=== PATIENT | female | born 1970 | race Hispanic/Latino ===

== ENCOUNTER 2020-01-26 09:37 | Outpatient (CLI) | payer BC, OTHER, SELFPAY ==
[2020-01-26 09:57] LABS: Hematocrit 42.8 % (37.0-47.0); Hemoglobin 14.3 g/dL (12.0-15.0); Mean Corpuscular HGB Conc 33.4 g/dl (32-36); Mean Corpuscular Volume 92.6 fl (80-100); Mean Platelet Volume 9.9 fl (7.4-10.4); Platelet Count Result 330 k/mm3 (150-375); Red Blood Count 4.62 M/mm3 (4.2-5.4); Red Cell Distribution Width 12.5 % (11.5-14.5); White Blood Count 20.6 K/mm3 (4.5-10.0)
[2020-01-26 10:14] LABS: Alanine Aminotransferase 11 U/L (4-35); Albumin Level 4.4 g/dL (3.5-5.1); Alkaline Phosphatase 41 U/L (38-126); Anion Gap 8 mmol/L (8-16); Aspartate Amino Transferase 16 U/L (14-36); Bilirubin,Total 0.5 mg/dL (0.2-1.3); Blood Urea Nitrogen 13 mg/dL (7-17); Calcium 9.3 mg/dL (8.4-10.2); Carbon Dioxide 26 mmol/L (22-30); Chloride 104 mmol/L (98-107); Estimated Glomerular Filt Rate > 60; Glucose 110 mg/dL (65-105); Potassium 3.6 mmol/L (3.4-5.0); Sodium 138 mmol/L (137-145)
[2020-01-26 10:43] LABS: Free T4 Free Thyroxine 0.71 ng/mL (0.78-2.19)
== END 2020-01-26 09:38 | disposition home or self-care (01) ==
PROVIDERS: PCP Family Medicine; Visit Provider Physician Assistant
DX: R53.83 Other fatigue (principal)
CPT/HCPCS: 36415; 80053; 84439; 84443; 85027

== ENCOUNTER 2020-01-30 14:31 | Emergency (ER) | payer BC, OTHER, SELFPAY ==
--- NOTE | ~2020-01-30 | XR_ITS ---
EXAMINATION: XR chest 2V 01/30/2020 15:05 INDICATION: Chest pain PROCEDURE: 2 view chest COMPARISON: Comparison to multiple prior studies sequentially, with oldest reviewed study dated 10/24. FINDINGS: The lungs are clear. The cardiomediastinal silhouette is within normal limits. There are no pleural effusions. There is no pneumothorax suspected. IMPRESSION: 1: NO ACUTE CARDIOPULMONARY DISEASE. Reviewed, dictated and finalized at location B.
--- NOTE | 2020-01-30 14:37 | ECG_ITS ---
Measurements Intervals [place] Rate: 80 P: 54 CA: 174 QRS: 4 QRSD: 78 T: 29 QT: 384 QTc: 443 Interpretive Statements SINUS RHYTHM BASELINE WANDER- V1-V6 NORMAL ECG Electronically Signed On 01-30-2020 14:50:41 CDT by Jonathan Lentz D.O.
[2020-01-30 14:44] VITALS: BP 139/87; PULSE 74; RESP 20; TEMP 36.8; O2SAT 98
[2020-01-30 14:54] VITALS: BP 139/87; PULSE 77; RESP 20; O2SAT 99
--- NOTE | 2020-01-30 15:06 | ED.CHESTPAIN ---
HPI - Chest Pain General Chief Complaint: Chest Pain Stated Complaint: INT CHEST PAIN XWKS Time Seen by Provider: 01/30/20 14:39 Source: patient Mode of arrival: ambulatory Limitations: no limitations History of Present Illness HPI narrative: 49 years old white female presents with intermittent left chest pressure type ache for the last 2 weeks. Patient reports when the pain comes last for few hours. Then resolves. Patient denies any aggravating or relieving factors. Patient reports that the pain radiates to the left upper back. Patient reports sometimes the pain is down if she calmed down. Patient denies any fever, chills, nausea, vomiting, shortness of breath. History of anxiety and depression. Reports a lot of stress lately. Patient reported having a fall, tripped and fell 3 weeks ago, landed on the right side of her body. Did not go to any hospital at that time. Denies any specific complaint. Related Data Allergies Allergy/AdvReac Type Severity Reaction Status Date / Time piperacillin Allergy Severe Dyspnea / Verified 01/30/20 14:49 SOB tazobactam Allergy Severe Dyspnea / Verified 01/30/20 14:49 SOB vancomycin Allergy Intermediate Dyspnea / Verified 01/30/20 14:49 SOB ciprofloxacin Allergy Mild Unknown Verified 01/30/20 14:49 codeine Allergy Mild Unknown Verified 01/30/20 14:49 Quinolones Allergy Mild Unknown Verified 01/30/20 14:49 Sulfa (Sulfonamide Allergy Mild unknown Verified 01/30/20 14:49 Antibiotics) Contrast Media Allergy Mild Rash Uncoded 01/30/20 14:49 Review of Systems Review of Systems: Narrative: CONSTITUTIONAL: Denies fever, chills, or sweats. EYES: Denies visual changes, redness, or discharge. ENT: Denies rhinorrhea, congestion, sore throat, or otalgia. CARDIOVASCULAR: Denies chest pain, palpitations, or edema. RESPIRATORY: Denies cough or dyspnea. GASTROINTESTINAL: Denies abdominal pain, nausea, vomiting, or diarrhea. GENITOURINARY: Denies dysuria or hematuria. SKIN: Denies rash or itching. MUSCULOSKELETAL: Denies back pain, joint pain, or myalgia. NEUROLOGIC: Denies headache, numbness, or weakness. PSYCHIATRIC: Denies anxiety or depression. [facility] Past Medical History Medical History Depression Surgical History Surgical History H/O tubal ligation History of cholecystectomy Social History Social History Smoking status: Former smoker Gender identity (if verbalized by the patient): Female Exam Narrative: Exam Narrative: General appearance: Well-developed, well-nourished Skin: Normal color Head: Normocephalic, nontraumatic Eyes: Clear conjunctiva ENT: Oropharynx normal, ears normal, nose normal Neck: Supple, nontender Chest and respiratory: Airway patent, no respiratory distress, no accessory muscle use, severe tenderness left upper chest, no bruises, no swelling or rash Heart: Regular rate/rhythm Abdomen: Soft, nontender, no organomegaly, quiet bowel sounds Vascular: Normal peripheral pulses, normal capillary refill. 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
[2020-01-30 15:08] LABS: Basophils Absolute Auto 0.1 K/mm3 (0.0-0.1); Basophils Percent Auto 0.4 % (0.2-1.2); Hematocrit 43.7 % (37.0-47.0); Hemoglobin 14.6 g/dL (12.0-15.0); Immature Granulocyte Absolute 0.13 K/mm3 (0.00-0.031); Lymphocytes Absolute Auto 1.06 K/mm3 (0.9-3.2); Lymphocytes Percent Auto 7.8 % (18.3-44.2); Mean Corpuscular HGB Conc 33.4 g/dl (32-36); Mean Corpuscular Hemoglobin 30.9 pg (26-34); Mean Corpuscular Volume 92.4 fl (80-100); Mean Platelet Volume 9.9 fl (7.4-10.4); Monocytes Absolute Auto 0.2 K/mm3 (0.1-0.6); Monocytes Percent Auto 1.6 % (2.6-8.5); Neutrophils Absolute Auto 12.1 K/mm3 (1.3-6.7); Neutrophils Percent Auto 89.2 % (45.5-73.1); Platelet Count Result 317 k/mm3 (150-375); Red Blood Count 4.73 M/mm3 (4.2-5.4); Red Cell Distribution Width 12.6 % (11.5-14.5); White Blood Count 13.5 K/mm3 (4.5-10.0)
[2020-01-30 15:17] LABS: Partial Thromboplastin Time 24.7 SECONDS (22.3-36.8); Prothrombin Time 12.5 Seconds (11.1-14.7)
[2020-01-30 15:19] LABS: Anion Gap 10 mmol/L (8-16); Blood Urea Nitrogen 17 mg/dL (7-17); Calcium 9.2 mg/dL (8.4-10.2); Carbon Dioxide 24 mmol/L (22-30); Chloride 103 mmol/L (98-107); Estimated CRCL calculation 94 ml/min; Estimated Glomerular Filt Rate > 60; Glucose 113 mg/dL (65-105); Potassium 4.5 mmol/L (3.4-5.0); Sodium 137 mmol/L (137-145)
[2020-01-30 15:30] LABS: Troponin I < 0.012 ng/mL (0.000-0.034)
[2020-01-30 15:35] VITALS: BP 142/80; PULSE 88; RESP 17; O2SAT 98
[2020-01-30 15:44] LABS: D Dimer 0.49 ug/mL (<0.48)
== END 2020-01-30 17:14 | disposition home or self-care (01) ==
PROVIDERS: Emergency Medicine; Emergency Provider Emergency Medicine; PCP Family Medicine
DX: R07.89 Other chest pain (principal); F41.9 Anxiety disorder, unspecified; F32.9 Major depressive disorder, single episode, unspecified; Z87.891 Personal history of nicotine dependence
CPT/HCPCS: 36415; 71046; 80048; 84484; 85025; 85380; 85610; 85730; 93005; 99284

== ENCOUNTER 2020-04-03 10:32 | Outpatient (CLI) | payer BC, OTHER, SELFPAY ==
[2020-04-03 10:58] LABS: Hematocrit 43.9 % (37.0-47.0); Hemoglobin 14.4 g/dL (12.0-15.0); Mean Corpuscular HGB Conc 32.8 g/dl (32-36); Mean Corpuscular Hemoglobin 30.5 pg (26-34); Mean Platelet Volume 10.1 fl (7.4-10.4); Platelet Count Result 336 k/mm3 (150-375); Red Blood Count 4.72 M/mm3 (4.2-5.4); White Blood Count 7.1 K/mm3 (4.5-10.0)
[2020-04-03 11:05] LABS: Add Urine Microscopic? YES; Appearance Urine Clear (Clear); Bacteria Urine Trace /hpf; Bilirubin Urine Negative (Negative); Blood Urine Negative (Negative); Color Urine Yellow (Yellow); Glucose Urine UA Negative (Negative); Ketones Urine Negative (Negative); Leukocyte Esterase Ur Negative LEU/UL (NEGATIVE); Mucus Urine Rare /lpf; Nitrate Urine Negative (Negative); Protein Urine Negative (Negative); Specific Grav Ur 1.017 (1.001-1.035); Squamous Epithelial Cell Urine Many /hpf (Few); Urobilinogen Urine Negative mg/dL (<2.0)
[2020-04-03 11:05] LABS: Alanine Aminotransferase 11 U/L (4-35); Albumin Level 4.3 g/dL (3.5-5.1); Alkaline Phosphatase 42 U/L (38-126); Anion Gap 5 mmol/L (8-16); Aspartate Amino Transferase 18 U/L (14-36); Bilirubin,Total 0.6 mg/dL (0.2-1.3); Blood Urea Nitrogen 9 mg/dL (7-17); Carbon Dioxide 31 mmol/L (22-30); Chloride 101 mmol/L (98-107); Estimated Glomerular Filt Rate > 60; Glucose 88 mg/dL (65-105); Potassium 4.4 mmol/L (3.4-5.0); Sodium 137 mmol/L (137-145)
[2020-04-03 11:35] LABS: Thyroid Stimulating Hormone 0.392 uIU/mL (0.465-4.680)
[2020-04-03 11:50] LABS: Free T4 Free Thyroxine 1.02 ng/mL (0.78-2.19)
== END 2020-04-03 10:33 | disposition home or self-care (01) ==
LOC: ANHLAB 10:32
PROVIDERS: PCP Family Medicine; Visit Provider Physician Assistant
DX: D64.9 Anemia, unspecified (principal); I10 Essential (primary) hypertension; E03.9 Hypothyroidism, unspecified; R35.0 Frequency of micturition
CPT/HCPCS: 36415; 80053; 81001; 84439; 84443; 85027; 87086; 87088

== ENCOUNTER 2020-06-12 11:54 | Outpatient (CLI) | payer BC, OTHER, SELFPAY ==
[2020-06-12 12:38] LABS: Creatinine Urine 75.3 mg/dL; Total Protein Urine Random 7 mg/dL; Ur Ttl Prot Creatinine Ratio 0.09 mg/mg (0-0.20)
[2020-06-12 12:41] LABS: Anion Gap 4 mmol/L (8-16); Blood Urea Nitrogen 9 mg/dL (7-17); Calcium 8.6 mg/dL (8.4-10.2); Carbon Dioxide 27 mmol/L (22-30); Chloride 105 mmol/L (98-107); Estimated Glomerular Filt Rate > 60; Glucose 87 mg/dL (65-105); Phosphorus 3.5 mg/dL (2.5-4.5); Potassium 4.5 mmol/L (3.4-5.0); Sodium 136 mmol/L (137-145)
[2020-06-12 12:54] LABS: Add Urine Microscopic? YES; Appearance Urine Clear (Clear); Bilirubin Urine Negative (Negative); Blood Urine Negative (Negative); Color Urine Yellow (Yellow); Glucose Urine UA Negative (Negative); Ketones Urine Negative (Negative); Leukocyte Esterase Ur Negative LEU/UL (Negative); Mucus Urine Rare /lpf; Nitrate Urine Negative (Negative); Protein Urine Negative (Negative); Specific Grav Ur 1.014 (1.001-1.035); Squamous Epithelial Cell Urine Many /hpf (Few); Urobilinogen Urine Negative mg/dL (<2.0)
== END 2020-06-12 11:55 | disposition home or self-care (01) ==
LOC: ANHLAB 11:55
PROVIDERS: PCP Family Medicine; Visit Provider Internal Medicine Nephrology
DX: N39.0 Urinary tract infection, site not specified (principal)
CPT/HCPCS: 36415; 80069; 81001; 82570; 84156

== ENCOUNTER 2020-06-19 09:48 | Outpatient (CLI) | payer BC, OTHER, SELFPAY ==
--- NOTE | ~2020-06-19 | CT_ITS ---
EXAMINATION: CT abdomen pelvis wo con EXAM DATE: 06/19/2020 10:57 INDICATION: Abdominal tenderness. TECHNIQUE: Spiral CT of the abdomen and pelvis was performed without contrast. Axial, coronal and s agittal images were reviewed. The dose-length product (DLP) for this examination was 845.06 mGy-cm. The exposure was tailored according to patient size (auto mA exposure control), and iterative recons truction (ASIR) was used as additional dose reduction technique. Comparison is made to prior examinat ion from 09/25/2014. FINDINGS: The liver, spleen, adrenal glands and pancreas are unremarkable. There are cholecystectomy clips. There is no nephrolithiasis or hydronephrosis. There is a right renal cyst measuring 1.0 cm. The uterus is retroverted and morphologically normal. The bladder is unremarkable. There is no r etroperitoneal or pelvic lymphadenopathy. The appendix is normal. There is mild sigmoid colonic diverticulosis. There is no adjacent inflammat ory change to suggest diverticulitis. The stomach and small bowel are unremarkable. There is expect ed amount of colonic stool. No free intraperitoneal gas. The heart is normal in size. There are no pericardial or pleural effusions. Right lower lobe calcified granuloma. Advanced lower lumbar facet arthropathy. There are no osteoblastic or osteolytic lesions identified. Bilateral iliac sclerosis, chronic sacroiliitis. IMPRESSION: 1. No acute intra-abdominal findings. 2. Mild sigmoid diverticulosis. 3. Chronic sacroiliitis. Reviewed, dictated and finalized at location B. OPEDIC SURGEON
== END 2020-06-19 09:49 | disposition home or self-care (01) ==
PROVIDERS: PCP Family Medicine; Visit Provider Internal Medicine Nephrology
DX: N39.0 Urinary tract infection, site not specified (principal); R10.819 Abdominal tenderness, unspecified site; K57.30 Diverticulosis of large intestine without perforation or abscess without bleeding; M46.1 Sacroiliitis, not elsewhere classified
CPT/HCPCS: 74176

== ENCOUNTER 2020-08-14 11:05 | Outpatient (CLI) | payer OTHER, SELFPAY ==
[2020-08-14 11:21] LABS: Hematocrit 39.4 % (37.0-47.0); Hemoglobin 12.8 g/dL (12.0-15.0); Mean Corpuscular HGB Conc 32.5 g/dl (32-36); Mean Corpuscular Hemoglobin 30.6 pg (26-34); Mean Corpuscular Volume 94.3 fl (80-100); Mean Platelet Volume 9.8 fl (7.4-10.4); Platelet Count Result 274 k/mm3 (150-375); Red Blood Count 4.18 M/mm3 (4.2-5.4); White Blood Count 7.6 K/mm3 (4.5-10.0)
[2020-08-14 11:32] LABS: Alanine Aminotransferase 14 U/L (4-35); Albumin Level 3.9 g/dL (3.5-5.1); Alkaline Phosphatase 43 U/L (38-126); Anion Gap 5 mmol/L (8-16); Aspartate Amino Transferase 23 U/L (14-36); Bilirubin,Total 0.2 mg/dL (0.2-1.3); Blood Urea Nitrogen 6 mg/dL (7-17); Calcium 8.7 mg/dL (8.4-10.2); Carbon Dioxide 29 mmol/L (22-30); Chloride 103 mmol/L (98-107); Estimated Glomerular Filt Rate > 60; Glucose 81 mg/dL (65-105); Sodium 137 mmol/L (137-145)
[2020-08-14 12:16] LABS: Vitamin D 25 Hydroxy 30.2 ng/mL
== END 2020-08-14 11:06 | disposition home or self-care (01) ==
LOC: ANHLAB 11:07
PROVIDERS: PCP Family Medicine; Visit Provider Family Medicine
DX: E03.9 Hypothyroidism, unspecified (principal); R53.83 Other fatigue; I10 Essential (primary) hypertension; E55.9 Vitamin D deficiency, unspecified
CPT/HCPCS: 36415; 80053; 82306; 84443; 85027

== ENCOUNTER 2020-10-10 19:20 | Emergency (ER) | payer OTHER, SELFPAY ==
[2020-10-10 19:31] VITALS: BP 129/78; PULSE 78; RESP 20; TEMP 36.3; O2SAT 100
--- NOTE | 2020-10-10 19:31 | PC.NURSE ---
in br to obtain ua.
--- NOTE | 2020-10-10 19:54 | ED.FEMALEGU ---
HPI - Female Genitourinary General Chief complaint: Urogenital-Female Stated complaint: UTI Time Seen by Provider: 10/10/20 19:42 Source: patient and RN notes reviewed Mode of arrival: ambulatory Limitations: no limitations History of Present Illness HPI Narrative: Patient presents today with a 2-week history of lower abdominal pain, low back pain, frequency, dysuria with hematuria that started this morning. Denies fever, nausea, vomiting. She was taking Azo that was providing relief initially, but is no longer. MD elicited complaint: dysuria Related Data Home Medications Medication Instructions Recorded Confirmed atomoxetine PO 10/10/20 buspirone mg 10/10/20 escitalopram oxalate mg 10/10/20 levothyroxine 10/10/20 lisinopril 10/10/20 montelukast mg 10/10/20 omeprazole 10/10/20 phenazopyridine 10/10/20 Allergies Allergy/AdvReac Type Severity Reaction Status Date / Time ciprofloxacin Allergy Unknown Verified 07/19/14 10:27 clindamycin Allergy Unknown Verified 07/19/14 10:37 codeine Allergy Unknown Verified 07/19/14 10:27 piperacillin Allergy Unknown Verified 09/17/15 12:09 Sulfa (Sulfonamide Allergy Unknown Verified 07/19/14 10:27 Antibiotics) tazobactam Allergy Unknown Verified 09/17/15 12:09 vancomycin Allergy Unknown Verified 09/17/15 12:09 Review of Systems Review of Systems: Narrative: CONSTITUTIONAL: Denies body aches, fever, chills, or sweats. EYES: Denies visual changes, redness, or discharge. ENT: Denies rhinorrhea, congestion, sore throat, or otalgia. CARDIOVASCULAR: Denies chest pain, palpitations, or edema. RESPIRATORY: Denies cough or dyspnea. GASTROINTESTINAL: Denies nausea, vomiting, or diarrhea. + Lower abdominal pain GENITOURINARY: + Dysuria, frequency, hematuria. SKIN: Denies rash, itching, or wounds. MUSCULOSKELETAL: Denies back pain, joint pain, or myalgia. NEUROLOGIC: Denies headache, numbness, tingling, or weakness. PSYCH: Denies depression or anxiety. [facility] Social History Social History Smoking status: Former smoker Second hand tobacco smoke exposure: Yes Smoking end date: 04/11/11 Alcohol intake: never Comments At time of signature, I have reviewed and agree with nursing past medical, surgical, social and family history unless otherwise noted. Please see nursing chart for further information. There is no relevant family history pertinent to the presenting complaint Exam Narrative: Exam Narrative: GENERAL: Well-appearing, well-nourished, and in no acute distress. HEAD: Normocephalic, atraumatic. EYES: EOMI. No redness or drainage. Conjunctivae normal. ENT: Mucous membranes pink and moist. NECK: Normal AROM. CHEST: No respiratory distress. Clear to auscultation. HEART: Regular rate and rhythm. No murmur appreciated. Normal peripheral pulses. ABDOMEN: Soft, , nondistended, normal active bowel sounds.+ Suprapubic tenderness.-CVAT MUSCULOSKELETAL: No bony tenderness. Bilateral lower lumbar paraspinal muscle tenderness. EXTREMITIES: Normal range of motion. No edema. SKIN: Warm, dry, no rash. Capillary refill normal. Normal skin turgor. NEURO: No focal deficits. Alert and oriented x3. Gait steady. PSYCH: Normal affect. No signs of depression or anxiety. Course Vital Signs Vital signs: Vital Signs Temperature 97.3 F L 10/10/20 19:31 Pulse Rate 78 10/10/20 19:31 Respiratory Rate 20 10/10/20 19:31 Blood Pressure 129/78 10/10/20 19:31 Pulse Oximetry 100 10/10/20 19:31 Temperature 97.3 F L 10/10/20 19:31 Pulse Rate 78 10/10/20 19:31 Respiratory Rate 20 10/10/20 19:31 Blood Pressure 129/78 10/10/20 19:31 Pulse Oximetry 100 10/10/20 19:31 Reviewed. Pt has been instructed to follow up with her PCP regarding her elevated blood pressure today. MDM - Female Genitourinary Differential Diagnosis Differential diagnosis: Likely urinary tract infection, cyst
== END 2020-10-10 20:04 | disposition home or self-care (01) ==
PROVIDERS: Emergency Provider Nurse Practitioner; PCP Family Medicine
DX: N30.01 Acute cystitis with hematuria (principal); Z87.891 Personal history of nicotine dependence; I10 Essential (primary) hypertension; K21.9 Gastro-esophageal reflux disease without esophagitis; E03.9 Hypothyroidism, unspecified
CPT/HCPCS: 81003; 87077; 87086; 87088; 99203; G0463

== ENCOUNTER 2021-02-13 13:08 | Outpatient (CLI) | payer OTHER, SELFPAY ==
[2021-02-13 13:35] LABS: Hemoglobin 14.4 g/dL (12.0-15.0); Mean Corpuscular HGB Conc 32.7 g/dl (32-36); Mean Corpuscular Hemoglobin 31.2 pg (26-34); Mean Corpuscular Volume 95.2 fl (80-100); Mean Platelet Volume 9.7 fl (7.4-10.4); Platelet Count Result 320 k/mm3 (150-375); Red Blood Count 4.62 M/mm3 (4.2-5.4); Red Cell Distribution Width 12.3 % (11.5-14.5); White Blood Count 10.8 K/mm3 (4.5-10.0)
[2021-02-13 13:48] LABS: Alanine Aminotransferase 15 U/L (4-35); Albumin Level 4.7 g/dL (3.5-5.1); Alkaline Phosphatase 48 U/L (38-126); Anion Gap 11 mmol/L (8-16); Aspartate Amino Transferase 23 U/L (14-36); Bilirubin,Total 0.5 mg/dL (0.2-1.3); Blood Urea Nitrogen 10 mg/dL (7-17); Calcium 9.1 mg/dL (8.4-10.2); Carbon Dioxide 25 mmol/L (22-30); Chloride 102 mmol/L (98-107); Estimated Glomerular Filt Rate > 60; Glucose 88 mg/dL (65-110); Potassium 3.8 mmol/L (3.4-5.0); Sodium 138 mmol/L (137-145)
== END 2021-02-13 13:09 | disposition home or self-care (01) ==
LOC: ANHLAB 13:09
PROVIDERS: PCP Family Medicine; Visit Provider Family Medicine
DX: E03.9 Hypothyroidism, unspecified (principal); R53.83 Other fatigue; I10 Essential (primary) hypertension
CPT/HCPCS: 36415; 80053; 84443; 85027

== ENCOUNTER 2021-04-30 18:45 | Emergency (ER) | payer OTHER, SELFPAY ==
[2021-04-30 18:50] VITALS: BP 146/87; PULSE 80; RESP 16; TEMP 36.1; O2SAT 100
--- NOTE | 2021-04-30 19:47 | ED.URI ---
HPI - URI/Sore Throat General Chief Complaint: Upper Respiratory Infection Stated Complaint: SINUS INFECTION Time Seen by Provider: 04/30/21 19:16 Source: patient and RN notes reviewed Mode of arrival: ambulatory Limitations: no limitations History of Present Illness HPI Narrative: Patient presents today with a 2 to 3-day history of nasal congestion and sinus pressure, headache, chills and sweats, nausea and diarrhea, upper back pain. She currently rates her pain 8/10 and has been taking Tylenol without relief. MD elicited complaint: nasal congestion, sinus pain and other (Headache) Related Data Home Medications Medication Instructions Recorded Confirmed loratadine 10 mg tablet 10 mg PO DAILY 03/03/20 04/30/21 nitrofurantoin macrocrystal 50 mg 50 mg PO DAILY cap 02/12/21 04/30/21 capsule Allergies Allergy/AdvReac Type Severity Reaction Status Date / Time piperacillin Allergy Severe Dyspnea / Verified 04/30/21 19:25 SOB tazobactam Allergy Severe Dyspnea / Verified 04/30/21 19:25 SOB vancomycin Allergy Intermediate Dyspnea / Verified 04/30/21 19:25 SOB ciprofloxacin Allergy Mild Unknown Verified 04/30/21 19:25 clindamycin Allergy Mild Unknown Verified 04/30/21 19:25 codeine Allergy Mild Unknown Verified 04/30/21 19:25 Quinolones Allergy Mild Unknown Verified 04/30/21 19:25 Sulfa (Sulfonamide Allergy Mild unknown Verified 04/30/21 19:25 Antibiotics) Contrast Media Allergy Mild Rash Uncoded 02/12/21 11:57 Review of Systems Review of Systems: CONSTITUTIONAL: Denies body aches, fever. + Chills, sweats EYES: Denies visual changes, redness, or discharge. ENT: Denies rhinorrhea, sore throat, or otalgia.+ Congestion, sinus pressure CARDIOVASCULAR: Denies chest pain, palpitations, or edema. RESPIRATORY: Denies cough or dyspnea. GASTROINTESTINAL: Denies abdominal pain, vomiting. + Nausea, diarrhea GENITOURINARY: Denies dysuria or hematuria. SKIN: Denies rash, itching, or wounds. MUSCULOSKELETAL: Denies joint pain, or myalgia.+ Back pain NEUROLOGIC: Denies numbness, tingling, or weakness.+ Headache PSYCH: Denies depression or anxiety. PMFSH Past Medical History Medical History Body mass index (BMI) of 30 to 39 in adult Depression Essential hypertension Inattention Obesity (BMI 30-39.9) Surgical History Surgical History H/O tubal ligation History of cholecystectomy Social History Social History Smoking packs per day: 0.25 Smoking cigarettes per day: 5.0 Years smoked: 10 Smoking pack-years: 2.50 Second hand tobacco smoke exposure: Yes Smoking end date: 04/11/11 Alcohol intake: never Substance use: never Substance use type: does not use Gender identity (if verbalized by the patient): Female Comments At time of signature, I have reviewed and agree with nursing past medical, surgical, social and family history unless otherwise noted. Please see nursing chart for further information. There is no relevant family history pertinent to the presenting complaint Exam Narrative: GENERAL: Mildly ill-appearing, well-nourished, and in no acute distress. HEAD: Normocephalic, atraumatic. EYES: EOMI. No redness or drainage. Conjunctivae normal. ENT: Mucous membranes pink and moist. Nares congested. No rhinorrhea. TMs normal bilaterally. Throat normal. Uvula midline. NECK: Normal AROM. Supple. No lymphadenopathy. CHEST: No respiratory distress. Clear to auscultation. HEART: Regular rate and rhythm. No murmur appreciated. Normal peripheral pulses. EXTREMITIES: Normal range of motion. No edema. SKIN: Warm, dry, no rash. Capillary refill normal. Normal skin turgor. NEURO: No focal deficits. Alert and oriented x3. Gait steady. PSYCH: Normal affect. No signs of depression or anxiety. Course Course
[2021-05-02 13:27] LABS: SARS-CoV-2 RNA PCR Negative
== END 2021-04-30 20:10 | disposition home or self-care (01) ==
PROVIDERS: Emergency Provider Nurse Practitioner; PCP Family Medicine
DX: B34.9 Viral infection, unspecified (principal); Z20.822 Contact with and (suspected) exposure to COVID-19; F17.210 Nicotine dependence, cigarettes, uncomplicated; I10 Essential (primary) hypertension; E66.9 Obesity, unspecified; Z68.34 Body mass index [BMI] 34.0-34.9, adult; F32.9 Major depressive disorder, single episode, unspecified
CPT/HCPCS: 87426; 87804; 99213; C9803; G0463; U0003; U0005

== ENCOUNTER 2021-07-23 09:36 | Outpatient (CLI) | payer OTHER, SELFPAY ==
--- NOTE | ~2021-07-23 | XR_ITS ---
EXAMINATION: XR chest 2V DATE: 07/23/2021 10:21 INDICATION: Shortness of breath. TECHNIQUE: Frontal and lateral views of the chest were obtained. COMPARISON: Chest 2 views 01/30/2020, CT abdomen and pelvis 06/19/2020 FINDINGS: There is mild atelectasis in the lower lung zones. No pleural effusion or pneumothorax. The heart size is normal. Surgical clips in the right upper quadrant are likely from cholecystectomy. IMPRESSION: 1. Mild atelectasis in the lower lung zones. Reviewed, dictated and finalized at location A.
[2021-07-23 09:58] LABS: Hematocrit 41.8 % (37.0-47.0); Hemoglobin 13.6 g/dL (12.0-15.0); Mean Corpuscular HGB Conc 32.5 g/dl (32-36); Mean Corpuscular Volume 95.2 fl (80-100); Mean Platelet Volume 9.5 fl (7.4-10.4); Platelet Count Result 360 k/mm3 (150-375); Red Blood Count 4.39 M/mm3 (4.2-5.4); Red Cell Distribution Width 12.4 % (11.5-14.5); White Blood Count 7.4 K/mm3 (4.5-10.0)
[2021-07-23 10:11] LABS: Alanine Aminotransferase 14 U/L (4-35); Albumin Level 4.4 g/dL (3.5-5.1); Alkaline Phosphatase 50 U/L (38-126); Anion Gap 5 mmol/L (8-16); Aspartate Amino Transferase 20 U/L (14-36); Bilirubin,Total 0.3 mg/dL (0.2-1.3); Blood Urea Nitrogen 9 mg/dL (7-17); Calcium 8.5 mg/dL (8.4-10.2); Carbon Dioxide 27 mmol/L (22-30); Chloride 104 mmol/L (98-107); Cholesterol 241 mg/dL (0-200); Estimated Glomerular Filt Rate > 60; Glucose 91 mg/dL (65-110); HDL Direct 48 mg/dL; Potassium 4.1 mmol/L (3.4-5.0); Sodium 136 mmol/L (137-145); Triglycerides 95 mg/dL (<150)
[2021-07-23 10:21] LABS: LDL Cholesterol Direct 147 mg/dL
[2021-07-23 10:29] LABS: Free T4 Free Thyroxine 0.96 ng/mL (0.78-2.19)
[2021-07-23 10:42] LABS: Thyroid Stimulating Hormone 0.609 uIU/mL (0.465-4.680)
[2021-07-27 07:25] LABS: Vitamin D 1,25 (OH)2 Total 56 pg/mL (18-72); Vitamin D2 1,25 (OH)2 <8 pg/mL; Vitamin D3 1,25 (OH)2 56 pg/mL
== END 2021-07-23 09:37 | disposition home or self-care (01) ==
LOC: ANHLAB 09:39
PROVIDERS: PCP Family Medicine; Visit Provider Physician Assistant
DX: R06.02 Shortness of breath (principal); E55.9 Vitamin D deficiency, unspecified; Z13.1 Encounter for screening for diabetes mellitus; R53.83 Other fatigue; Z13.220 Encounter for screening for lipoid disorders; E53.8 Deficiency of other specified B group vitamins; D64.9 Anemia, unspecified; R91.8 Other nonspecific abnormal finding of lung field
CPT/HCPCS: 36415; 71046; 80053; 80061; 82607; 82652; 84439; 84443; 85027

== ENCOUNTER 2021-07-31 15:14 | Outpatient (CLI) | payer OTHER, SELFPAY ==
--- NOTE | ~2021-07-31 | CT_ITS ---
EXAMINATION: CT brain wo con DATE: 07/31/2021 15:34 INDICATION: Headache TECHNIQUE: Computed tomography (CT) of the head was performed without intravenous contrast. Sagittal and coronal reconstructions were performed. The mA was adjusted according to patient size. Iterative reconstruction technique was employed. The dose-length product was 529.67 mGy-cm. COMPARISON: None FINDINGS: No acute intracranial hemorrhage, acute infarction or abnormal extra axial fluid collection. Ventricl es are normal and symmetric. No mass/mass effect. The orbits, paranasal sinuses and mastoid air cells are normal. IMPRESSION: 1. Normal head CT. Reviewed, dictated and finalized at location A. IMPRESSION: 1. Normal head CT.
== END 2021-07-31 15:15 | disposition home or self-care (01) ==
LOC: ANHIMG 15:16
PROVIDERS: PCP Family Medicine; Visit Provider Family Medicine
DX: R51.9 Headache, unspecified (principal); R41.3 Other amnesia
CPT/HCPCS: 70450

== ENCOUNTER 2022-02-05 01:22 | Day surgery (SDC) | payer OTHER, SELFPAY ==
[2021-12-31 12:17] VITALS: BMI 34.3
[2022-02-05 12:11] VITALS: BP 121/86; PULSE 83; RESP 20; TEMP 36.3; O2SAT 100
[2022-02-05] MEDS: LACTATED RINGERS 1,000 ML 150 ML IV CONT (12:20)
--- NOTE | 2022-02-05 12:24 | WPDANESEPPF ---
Anes - Initial Pre Proc Eval Procedure: Operation Date: 02/05/22 13:30 Proposed Procedures p Esophagogastroduodenoscopy & Screening Colonoscopy - Ramses Blanco MD Date/Time: 02/05/22 12:24 Surgeon: Ramses Blanco MD Pre Op Diagnosis: GERD, neoplasm screening Patient Data Age: 51 Gender: F Height: 1.6 m Weight: 86.4 kg Last Vital Signs Temp 97.3 F L 02/05/22 12:11 Pulse 83 02/05/22 12:11 Resp 20 02/05/22 12:11 BP 121/86 02/05/22 12:11 Pulse Ox 100 02/05/22 12:11 O2 Del Method Room Air 02/05/22 12:11 Allergies Allergy/AdvReac Type Severity Reaction Status Date / Time piperacillin Allergy Severe Dyspnea / Verified 02/05/22 12:09 SOB tazobactam Allergy Severe Dyspnea / Verified 02/05/22 12:09 SOB vancomycin Allergy Intermediate Dyspnea / Verified 02/05/22 12:09 SOB ciprofloxacin Allergy Mild Unknown Verified 02/05/22 12:09 clindamycin Allergy Mild Unknown Verified 02/05/22 12:09 codeine Allergy Mild Unknown Verified 02/05/22 12:09 Quinolones Allergy Mild Unknown Verified 02/05/22 12:09 Sulfa (Sulfonamide Allergy Mild unknown Verified 02/05/22 12:09 Antibiotics) Contrast Media Allergy Mild Rash Uncoded 12/31/21 12:35 Home Medications Medication Instructions Recorded Confirmed Type mecobalamin (vitamin B12) 10,000 1,000 mcg IM MONTHLY #1 ea 02/12/21 12/31/21 Rx mcg solution for injection syringe (disposable) 1 mL (BD #12 ea 02/12/21 12/31/21 Rx Syringe) montelukast 10 mg tablet 10 mg PO QHS #30 tabs 06/12/21 12/31/21 Rx albuterol sulfate 90 mcg/actuation 1 inh inhalation Q4H PRN shortness 07/23/21 12/31/21 Rx aerosol inhaler (ProAir HFA) of breath or wheezing #8.5 grams bupropion HCl 150 mg tablet,12 hr 150 mg PO BID #60 tabs 09/30/21 12/31/21 Rx sustained-release (Wellbutrin SR) buspirone 5 mg tablet 5 mg PO TID PRN anxiety #90 tabs 10/29/21 12/31/21 Rx cetirizine 10 mg tablet (Zyrtec) 10 mg PO DAILY PRN Allergy Symptoms 11/20/21 12/31/21 History esomeprazole magnesium 40 mg 40 mg PO DAILY 1 month #30 caps 12/04/21 12/31/21 Rx capsule,delayed release levothyroxine 50 mcg tablet 50 mcg PO DAILY #90 tabs 01/21/22 02/05/22 Rx lisinopril 10 mg tablet 10 mg PO DAILY #30 tabs 01/21/22 02/05/22 Rx atomoxetine 80 mg capsule 80 mg PO DAILY #30 caps 01/23/22 02/05/22 Rx diclofenac sodium 1 % topical gel 2 g topical QID #100 grams 01/26/22 02/05/22 Rx (Voltaren Arthritis Pain) Patient hx anesthesia problems: none Family hx anesthesia problems: none Results Review: All pre-operative results and documents have been reviewed as part of the pre-operative evaluation. [facility] Past Medical History Medical History (Updated 12/04/21 @ 10:09 by MATT Ordaz) Body mass index (BMI) of 30 to 39 in adult Depression Encounter for screening colonoscopy Essential hypertension Inattention Obesity (BMI 30-39.9) Surgical History Surgical History H/O tubal ligation History of cholecystectomy Social History Social History Smoking packs per day: 0.25 Smoking cigarettes per day: 5.0 Years smoked: 10 Smoking pack-years: 2.50 Smoking status: Light tobacco smoker Tobacco type: cigarettes Second hand tobacco smoke exposure: Yes Additional smoking assessment comments: had quit smoking, has started again but wants to quit Alcohol intake: never Substance use: current Substance use type: does not use Other substance usage details: gummies on occasion Living arrangements: with family Gender identity (if verbalized by the patient): Female Spiritual care concerns: No Anes - Eval Final PreProcedure Day of Procedure 02/05/22 12:24 Patient weight: obese Heart: regular rate and rhythm Lungs: clear to auscultation Airway: Mallampati scale class II Neurological: alert and oriented Last oral intake: >/
--- NOTE | 2022-02-05 12:39 | PM.HPGS ---
History of Present Illness History of Present Illness Consent: Risks, benefits, and alternatives have been discussed and questions answered. Patient agrees to proceed with procedure. Chief complaint: GERD, neoplasm screening Narrative: Zeina Camacho is a 51 year old female with chronic gerd on ppi but never had egd, also needs screening colonoscopy Review of Systems Constitutional: Constitutional: Denies headache(s) and Denies weakness Eyes: Eyes: Denies blurry vision ENT: Reports Normal hearing present, Denies headache(s) and Denies neck pain Cardiovascular: Cardiovascular: Denies chest pain and Denies dyspnea Respiratory: Respiratory: Denies dyspnea Gastrointestinal: Gastrointestinal: Reports no additional gastrointestinal complaints Genitourinary: Genitourinary: Denies dysuria Musculoskeletal: Musculoskeletal: Denies neck pain Integumentary/Breasts: Skin/Breast: Denies dry skin Neurologic: Reports Normal hearing present, Denies headache(s) and Denies weakness Psychiatric: Psychiatric: Denies anxiety Endocrine: Endocrine: Denies change in body appearance Hematologic/Lymphatic: Hematologic/Lymphatic: Denies easy bleeding Allergic/Immunologic: Allergic/Immunologic: Denies urticaria PMFSH Past Medical History Medical History (Updated 02/05/22 @ 12:40 by Ramses Blanco MD) Body mass index (BMI) of 30 to 39 in adult Depression Encounter for screening colonoscopy Essential hypertension GERD (gastroesophageal reflux disease) Inattention Obesity (BMI 30-39.9) Surgical History Surgical History H/O tubal ligation History of cholecystectomy Social History Social History Smoking packs per day: 0.25 Smoking cigarettes per day: 5.0 Years smoked: 10 Smoking pack-years: 2.50 Smoking status: Light tobacco smoker Tobacco type: cigarettes Second hand tobacco smoke exposure: Yes Additional smoking assessment comments: had quit smoking, has started again but wants to quit Alcohol intake: never Substance use: current Substance use type: does not use Other substance usage details: gummies on occasion Living arrangements: with family Gender identity (if verbalized by the patient): Female Spiritual care concerns: No Meds Home Medications and Allergies Home Medications Medication Instructions Recorded Confirmed Type mecobalamin (vitamin B12) 10,000 1,000 mcg IM MONTHLY #1 ea 02/12/21 12/31/21 Rx mcg solution for injection syringe (disposable) 1 mL (BD #12 ea 02/12/21 12/31/21 Rx Syringe) montelukast 10 mg tablet 10 mg PO QHS #30 tabs 06/12/21 12/31/21 Rx albuterol sulfate 90 mcg/actuation 1 inh inhalation Q4H PRN shortness 07/23/21 12/31/21 Rx aerosol inhaler (ProAir HFA) of breath or wheezing #8.5 grams bupropion HCl 150 mg tablet,12 hr 150 mg PO BID #60 tabs 09/30/21 12/31/21 Rx sustained-release (Wellbutrin SR) buspirone 5 mg tablet 5 mg PO TID PRN anxiety #90 tabs 10/29/21 12/31/21 Rx cetirizine 10 mg tablet (Zyrtec) 10 mg PO DAILY PRN Allergy Symptoms 11/20/21 12/31/21 History esomeprazole magnesium 40 mg 40 mg PO DAILY 1 month #30 caps 12/04/21 12/31/21 Rx capsule,delayed release levothyroxine 50 mcg tablet 50 mcg PO DAILY #90 tabs 01/21/22 02/05/22 Rx lisinopril 10 mg tablet 10 mg PO DAILY #30 tabs 01/21/22 02/05/22 Rx atomoxetine 80 mg capsule 80 mg PO DAILY #30 caps 01/23/22 02/05/22 Rx diclofenac sodium 1 % topical gel 2 g topical QID #100 grams 01/26/22 02/05/22 Rx (Voltaren Arthritis Pain) Allergies Allergy/AdvReac Type Severity Reaction Status Date / Time piperacillin Allergy Severe Dyspnea / Verified 02/05/22 12:09 SOB tazobactam Allergy Severe Dyspnea / Verified 02/05/22 12:09 SOB vancomycin Allergy Intermediate Dyspnea / Verified 02/05/22 12:09 SOB ciprofloxacin Allergy Mild Unknown Verified 1
--- NOTE | 2022-02-05 12:53 | SUR.OPER ---
EGD end 1248 COLONOSCOPY start 1255
[2022-02-05 13:10] VITALS: BP 97/61; PULSE 93; RESP 23; O2SAT 100
[2022-02-05 13:20] VITALS: BP 113/73; PULSE 77; RESP 20; O2SAT 100
[2022-02-05 13:30] VITALS: BP 119/76; PULSE 76; RESP 21; O2SAT 100
== END 2022-02-05 13:39 | disposition home or self-care (01) ==
PROVIDERS: PCP Family Medicine; Visit Provider Internal Medicine Gastroenterology
PROC: 0DJ08ZZ Inspection of Upper Intestinal Tract, Via Natural or Artificial Opening Endoscopic (ICD-10-PCS; CPT 43235; principal; 2022-02-05 13:30)
DX: Z12.11 Encounter for screening for malignant neoplasm of colon (principal); K64.8 Other hemorrhoids; K21.00 Gastro-esophageal reflux disease with esophagitis, without bleeding; I10 Essential (primary) hypertension; F32.A Depression, unspecified; E66.9 Obesity, unspecified; Z68.33 Body mass index [BMI] 33.0-33.9, adult; F17.210 Nicotine dependence, cigarettes, uncomplicated; Z79.51 Long term (current) use of inhaled steroids
CPT/HCPCS: 45378; 43239; 88305; J2704; J7120

== ENCOUNTER 2022-03-15 17:19 | Emergency (ER) | payer OTHER, SELFPAY ==
[2022-03-15 17:29] VITALS: BP 143/84; PULSE 76; RESP 16; TEMP 36.6; O2SAT 100
--- NOTE | 2022-03-15 18:04 | ED.GENADULT ---
HPI - General Adult General Chief complaint: Extremity Injury, Upper Stated complaint: Left Shoulder Pain Time Seen by Provider: 03/15/22 18:05 Source: patient, RN notes reviewed and old records reviewed Mode of arrival: ambulatory Limitations: no limitations History of Present Illness HPI narrative: 52-year-old female presents to the [facility] with a history of asthma, anxiety, depression, hypertension with complaints of left-sided chest pain, pressure radiating down her left arm associated with nausea and shortness of breath. Started approximately 1-1/2 hours ago. Related Data Home Medications Medication Instructions Recorded Confirmed cetirizine 10 mg tablet (Zyrtec) 10 mg PO DAILY PRN Allergy Symptoms 11/20/21 03/15/22 Allergies Allergy/AdvReac Type Severity Reaction Status Date / Time piperacillin Allergy Severe Dyspnea / Verified 02/05/22 12:09 SOB tazobactam Allergy Severe Dyspnea / Verified 02/05/22 12:09 SOB vancomycin Allergy Intermediate Dyspnea / Verified 02/05/22 12:09 SOB ciprofloxacin Allergy Mild Unknown Verified 02/05/22 12:09 clindamycin Allergy Mild Unknown Verified 02/05/22 12:09 codeine Allergy Mild Unknown Verified 02/05/22 12:09 Quinolones Allergy Mild Unknown Verified 02/05/22 12:09 Sulfa (Sulfonamide Allergy Mild unknown Verified 02/05/22 12:09 Antibiotics) Contrast Media Allergy Mild Rash Uncoded 12/31/21 12:35 Review of Systems Review of Systems: All systems reviewed & are unremarkable except as noted in HPI and below Constitutional: Constitutional: Reports no additional constitutional complaints Eyes: Eyes: Reports no additional eye complaints ENT: Reports system reviewed and no additional complaints, except as documented Cardiovascular: Cardiovascular: Reports as per HPI, Reports chest pain, Reports radiating jaw, neck or arm pain (Left arm) and Reports dyspnea Respiratory: Respiratory: Reports no additional respiratory complaints, Denies chest congestion, Denies cough and Denies dyspnea Gastrointestinal: Gastrointestinal: Reports as per HPI, Reports no additional gastrointestinal complaints, Denies abdominal pain, Reports nausea and Denies vomiting Musculoskeletal: Musculoskeletal: Reports as per HPI and Reports arthralgias (Left shoulder) Integumentary/Breasts: Skin/Breast: Reports system reviewed and no additional complaints, except as docu Neurologic: Reports system reviewed and no additional complaints, except as documented Psychiatric: Psychiatric: Reports no additional psychiatric complaints Allergic/Immunologic: Allergic/Immunologic: Reports no additional allergic/immunologic complaints PMF Past Medical History Medical History Body mass index (BMI) of 30 to 39 in adult Depression Encounter for screening colonoscopy Essential hypertension GERD (gastroesophageal reflux disease) Inattention Obesity (BMI 30-39.9) Surgical History Surgical History H/O tubal ligation History of cholecystectomy Social History Social History Smoking packs per day: 0.25 Smoking cigarettes per day: 5.0 Years smoked: 10 Smoking pack-years: 2.50 Smoking status: Light tobacco smoker Tobacco type: cigarettes Second hand tobacco smoke exposure: Yes Additional smoking assessment comments: had quit smoking, has started again but wants to quit Alcohol intake: never Substance use: current Substance use type: does not use Other substance usage details: gummies on occasion Gender identity (if verbalized by the patient): Female Spiritual care concerns: No Comments At the time of my signature, I reviewed and agree with the nursing past medical, surgical, social, and family history. There is no relevant family history pertinent to the patient complaint. Exam Const: General: cooperati
--- NOTE | 2022-03-15 18:08 | ECG_ITS ---
Measurements Intervals [place] Rate: 72 P: 22 UT: 170 QRS: -6 QRSD: 86 T: 11 QT: 400 QTc: 439 Interpretive Statements SINUS RHYTHM MODERATE VOLTAGE CRITERIA FOR LVH, CONSIDER NORMAL VARIANT [MEETS CRITERIA IN ONE OF: R(aVL), S(V1), R(V5), R(V5/V6)+S(V1)] COMPARED TO ECG 03/15/2022 18:14:11 NO SIGNIFICANT CHANGES Electronically Signed On 03-16-2022 15:23:00 VOCATIONAL PSYCHOLOGIST by Alisa Valentin M.D.
--- NOTE | 2022-03-15 18:16 | PC.NURSE ---
EMS offered for trasport to [facility]. Pt declined. Pt has friend that will take her.
== END 2022-03-15 18:20 | disposition short-term general hospital (02) ==
PROVIDERS: Emergency Provider Nurse Practitioner; PCP Family Medicine
DX: R07.89 Other chest pain (principal); M25.512 Pain in left shoulder; F17.210 Nicotine dependence, cigarettes, uncomplicated; I10 Essential (primary) hypertension; K21.9 Gastro-esophageal reflux disease without esophagitis; E66.9 Obesity, unspecified; Z68.34 Body mass index [BMI] 34.0-34.9, adult; J45.909 Unspecified asthma, uncomplicated; F41.9 Anxiety disorder, unspecified; F32.A Depression, unspecified
CPT/HCPCS: 93005; 99213; G0463

== ENCOUNTER 2022-03-15 18:39 | Emergency (ER) | payer OTHER, MEDICAID, SELFPAY ==
--- NOTE | ~2022-03-15 | XR_ITS ---
EXAMINATION: XR chest 2V Exam Date/Time: 03/15/2022 19:35 RV TECHNICIAN HISTORY: chest and arm pain INTO LT SIDE TODAY, HX ASTHMA Comparison: 07/23/2021. RESULT: Lines, tubes, and devices: Cholecystectomy clips. Lungs and pleura: Clear. Cardiomediastinal silhouette: Stable. Other: No acute osseous or upper abdominal finding. IMPRESSION: No acute cardiopulmonary process. Reviewed, dictated and finalized at location K. TECHNICIAN
[2022-03-15 19:21] VITALS: BP 138/79; PULSE 77; RESP 16; TEMP 36.5; O2SAT 100
--- NOTE | 2022-03-15 19:24 | ECG_ITS ---
Measurements Intervals [place] Rate: 76 P: 44 IN: 175 QRS: -3 QRSD: 77 T: 28 QT: 386 QTc: 435 Interpretive Statements SINUS RHYTHM COMPARED TO ECG 01/30/2020 14:43:43 NO SIGNIFICANT CHANGES Electronically Signed On 03-16-2022 15:20:13 RAILWAY PATROL OFFICER by Alisa Valentin M.D.
[2022-03-15 19:48] LABS: Basophils Absolute Auto 0.1 K/mm3 (0.0-0.1); Basophils Percent Auto 0.6 % (0.2-1.2); Eosinophils Percent Auto 0.4 % (0-4.4); Hematocrit 41.8 % (37.0-47.0); Hemoglobin 13.9 g/dL (12.0-15.0); Immature Granulocyte Absolute 0.04 K/mm3 (0.00-0.031); Immature Granulocyte Percent A 0.4 % (0-0.5); Lymphocytes Absolute Auto 2.31 K/mm3 (0.9-3.2); Lymphocytes Percent Auto 22.6 % (18.3-44.2); Mean Corpuscular HGB Conc 33.3 g/dl (32-36); Mean Corpuscular Hemoglobin 31.4 pg (26-34); Mean Corpuscular Volume 94.4 fl (80-100); Mean Platelet Volume 9.9 fl (7.4-10.4); Monocytes Absolute Auto 0.5 K/mm3 (0.1-0.6); Monocytes Percent Auto 4.8 % (2.6-8.5); Neutrophils Absolute Auto 7.3 K/mm3 (1.3-6.7); Neutrophils Percent Auto 71.2 % (45.5-73.1); Platelet Count Result 312 k/mm3 (150-375); Red Blood Count 4.43 M/mm3 (4.2-5.4); Red Cell Distribution Width 13.1 % (11.5-14.5); White Blood Count 10.2 K/mm3 (4.5-10.0)
[2022-03-15 19:59] LABS: Alanine Aminotransferase 17 U/L (6-35); Albumin Level 4.5 g/dL (3.5-5.1); Alkaline Phosphatase 48 U/L (38-126); Anion Gap 10 mmol/L (8-16); Aspartate Amino Transferase 24 U/L (14-36); Bilirubin,Total 0.3 mg/dL (0.2-1.3); Blood Urea Nitrogen 12 mg/dL (7-17); Calcium 8.8 mg/dL (8.4-10.2); Carbon Dioxide 25 mmol/L (22-30); Chloride 101 mmol/L (98-107); Estimated CRCL calculation 99 ml/min; Estimated Glomerular Filt Rate > 60; Glucose 91 mg/dL (65-110); Lipase 63 U/L (23-300); Potassium 3.8 mmol/L (3.4-5.0); Sodium 136 mmol/L (137-145)
[2022-03-15 20:10] LABS: Troponin I < 0.012 ng/mL (0.000-0.034)
[2022-03-16 01:04] LABS: Prothrombin Time 12.4 Seconds (11.1-14.7)
[2022-03-16 01:05] LABS: Partial Thromboplastin Time 27.2 SECONDS (22.3-36.8)
[2022-03-16 01:23] LABS: Troponin I < 0.012 ng/mL (0.000-0.034)
[2022-03-16] MEDS: ORPHENADRINE CITRATE 100 MG TABLET.ER PO (01:55)
--- NOTE | 2022-03-16 02:15 | ED.GENADULT ---
HPI - General Adult General Chief complaint: Chest Pain Stated complaint: chest pressure Time Seen by Provider: 03/16/22 00:41 History of Present Illness HPI narrative: Patient 52-year-old female presents emerged part with chief complaint of left shoulder and back pain as well as chest. Patient states this has been going on for few hours prior to arrival in the emergency department. Patient reports the pain is worse with movement and improved with rest patient reports she had a bit of a tingling sensation in her left arm but denies focal neurological deficits. The patient states that she had an episode somewhat similar to this a few years ago that was more of considered chest wall pain. The patient reports that the pain is reproducible and reports that she had no diaphoresis reports no prior history of cardiac disease. Related Data Home Medications Medication Instructions Recorded Confirmed cetirizine 10 mg tablet (Zyrtec) 10 mg PO DAILY PRN Allergy Symptoms 11/20/21 03/15/22 Allergies Allergy/AdvReac Type Severity Reaction Status Date / Time piperacillin Allergy Severe Dyspnea / Verified 02/05/22 12:09 SOB tazobactam Allergy Severe Dyspnea / Verified 02/05/22 12:09 SOB vancomycin Allergy Intermediate Dyspnea / Verified 02/05/22 12:09 SOB ciprofloxacin Allergy Mild Unknown Verified 02/05/22 12:09 clindamycin Allergy Mild Unknown Verified 02/05/22 12:09 codeine Allergy Mild Unknown Verified 02/05/22 12:09 Quinolones Allergy Mild Unknown Verified 02/05/22 12:09 Sulfa (Sulfonamide Allergy Mild unknown Verified 02/05/22 12:09 Antibiotics) Contrast Media Allergy Mild Rash Uncoded 12/31/21 12:35 Review of Systems Review of Systems: A 10 system review of systems was completed on the patient and is negative except for what is stated in the HPI. Nursing and ancillary documentation was reviewed. [facility] Past Medical History Medical History Body mass index (BMI) of 30 to 39 in adult Depression Encounter for screening colonoscopy Essential hypertension GERD (gastroesophageal reflux disease) Inattention Obesity (BMI 30-39.9) Surgical History Surgical History H/O tubal ligation History of cholecystectomy Social History Social History Smoking packs per day: 0.25 Smoking cigarettes per day: 5.0 Years smoked: 10 Smoking pack-years: 2.50 Smoking status: Light tobacco smoker Tobacco type: cigarettes Second hand tobacco smoke exposure: Yes Additional smoking assessment comments: had quit smoking, has started again but wants to quit Alcohol intake: never Substance use: current Substance use type: does not use Other substance usage details: gummies on occasion Gender identity (if verbalized by the patient): Female Spiritual care concerns: No Exam Narrative: GENERAL: Well-appearing, well-nourished, and in no acute distress. HEAD: Normocephalic, atraumatic. EYES: PERRLA and EOMI. ENT: Nares clear, no rhinorrhea or epistaxis. Mucous membranes moist. NECK: Supple. Tenderness to palpation the paraspinous muscles of the left neck Back: There is tenderness palpation of paraspinal muscles and medial to the scapula CHEST: Clear to auscultation. No respiratory distress. HEART: Regular rate and rhythm. No murmur heard. Normal peripheral pulses. ABDOMEN: Soft, nontender, nondistended, normal active bowel sounds. EXTREMITIES: Normal range of motion. No edema. NIH of 0 SKIN: Warm, dry, no rash. NEURO: No focal deficits. Alert and oriented x3. PSYCH: Normal mood and affect. Course Course Emergency Course: Chest x-ray showed no evidence of focal infiltrate. Laboratory studies showed a negative troponin x2. Vital Signs Vital signs: Vital Signs Temperature 36.5 C 03/15/22 19:21 Pulse Rate 77
== END 2022-03-16 02:52 | disposition home or self-care (01) ==
PROVIDERS: Emergency Provider Emergency Medicine; PCP Family Medicine
DX: R07.89 Other chest pain (principal); M54.6 Pain in thoracic spine; I10 Essential (primary) hypertension; K21.9 Gastro-esophageal reflux disease without esophagitis; E66.9 Obesity, unspecified; Z68.34 Body mass index [BMI] 34.0-34.9, adult; F17.210 Nicotine dependence, cigarettes, uncomplicated
CPT/HCPCS: 36415; 71046; 80053; 83690; 84484; 85025; 85610; 85730; 93005; 99284; A9270

== ENCOUNTER 2022-03-19 11:22 | Outpatient (CLI) | payer OTHER, MEDICAID, SELFPAY ==
--- NOTE | ~2022-03-19 | XR_ITS ---
XR shoulder LT min 2V DATE: 03/19/2022 11:57 INDICATION: Left shoulder pain. No injury. TECHNIQUE: 4 views COMPARISON: None FINDINGS: There is uncovertebral joint spurring on the left at C5-6 encroaching moderately upon the l eft C7 neural foramen. There is mild calcification at the superior aspect of the left greater tuberosity, suggesting calcifi c tendinitis. No fracture or dislocation, periosteal reaction or bone destruction of the left shoulder. Normal alig nment and preservation of joint spaces at the acromioclavicular and glenohumeral joints. IMPRESSION: Calcific tendinitis of rotator cuff Uncovertebral joint spurring encroaching anteriorly upon left C7 neural foramen Reviewed, dictated and finalized at location B. LE APPLICATION ARCHITECT
--- NOTE | ~2022-03-19 | XR_ITS ---
EXAMINATION:XR cervical spine min 6V DATE: 03/19/2022 11:58 INDICATION: Neck pain TECHNIQUE: AP, lateral, bilateral oblique, lateral swimmers and odontoid views of the cervical spine are provided. COMPARISON: 07/02/2011 FINDINGS: There are 2 mm of retrolisthesis of C3 on C4 and C4 on C5. No fracture is identified. The v ertebral body heights are maintained. There is mild loss of intervertebral disc space height from C3- C4 through C6-7. Small degenerative osteophytes project from the anterior endplates of multiple verte bral bodies. There is multilevel mild to moderate facet and uncovertebral joint osteoarthritis. Preve rtebral soft tissues are normal. IMPRESSION: Mild cervical spondylosis without acute findings. Reviewed, dictated and finalized at location A. RLY
== END 2022-03-19 11:23 | disposition home or self-care (01) ==
PROVIDERS: PCP Family Medicine; Visit Provider Physician Assistant
DX: M47.22 Other spondylosis with radiculopathy, cervical region (principal); M75.32 Calcific tendinitis of left shoulder
CPT/HCPCS: 72052; 73030

== ENCOUNTER 2022-05-24 15:00 | Emergency (ER) | payer OTHER, BC, SELFPAY ==
[2022-05-24 15:07] VITALS: BP 120/82; PULSE 77; RESP 16; TEMP 36; O2SAT 100
[2022-05-24 15:10] VITALS: BP 120/82; PULSE 77; RESP 16; TEMP 36; O2SAT 100
--- NOTE | 2022-05-24 15:43 | ED.URI ---
HPI - URI/Sore Throat General Chief Complaint: Upper Respiratory Infection Stated Complaint: Ear/Nose/ Throat Time Seen by Provider: 05/24/22 15:43 Source: patient, RN notes reviewed and old records reviewed Mode of arrival: ambulatory Limitations: no limitations History of Present Illness HPI Narrative: 52-year-old female presents to the [facility] with complaints of ear nose and throat pain since Tuesday. No treatment prior to arrival Related Data Home Medications Medication Instructions Recorded Confirmed cetirizine 10 mg tablet (Zyrtec) 10 mg PO DAILY PRN Allergy Symptoms 11/20/21 05/24/22 bupropion HCl 150 mg tablet,12 hr 150 mg PO DAILY 03/19/22 05/24/22 sustained-release (Wellbutrin SR) Allergies Allergy/AdvReac Type Severity Reaction Status Date / Time piperacillin Allergy Severe Dyspnea / Verified 05/24/22 15:09 SOB tazobactam Allergy Severe Dyspnea / Verified 05/24/22 15:09 SOB vancomycin Allergy Intermediate Dyspnea / Verified 05/24/22 15:09 SOB ciprofloxacin Allergy Mild Unknown Verified 05/24/22 15:09 clindamycin Allergy Mild Unknown Verified 05/24/22 15:09 codeine Allergy Mild Unknown Verified 05/24/22 15:09 Quinolones Allergy Mild Unknown Verified 05/24/22 15:09 Sulfa (Sulfonamide Allergy Mild unknown Verified 05/24/22 15:09 Antibiotics) Contrast Media Allergy Mild Rash Uncoded 05/24/22 15:09 Review of Systems Review of Systems: All systems reviewed & are unremarkable except as noted in HPI and below Constitutional: Constitutional: Reports no additional constitutional complaints Eyes: Eyes: Reports no additional eye complaints ENT: Reports as per HPI Cardiovascular: Cardiovascular: Reports no additional cardiovascular complaints, Denies chest pain and Denies dyspnea Respiratory: Respiratory: Reports no additional respiratory complaints, Denies chest congestion, Denies cough and Denies dyspnea Gastrointestinal: Gastrointestinal: Reports no additional gastrointestinal complaints, Denies abdominal pain, Denies nausea and Denies vomiting Musculoskeletal: Musculoskeletal: Reports no additional musculoskeletal complaints Integumentary/Breasts: Skin/Breast: Reports system reviewed and no additional complaints, except as docu Neurologic: Reports system reviewed and no additional complaints, except as documented Psychiatric: Psychiatric: Reports no additional psychiatric complaints Allergic/Immunologic: Allergic/Immunologic: Reports no additional allergic/immunologic complaints PMFSH Past Medical History Medical History Body mass index (BMI) of 30 to 39 in adult Depression Encounter for screening colonoscopy Essential hypertension GERD (gastroesophageal reflux disease) Inattention Obesity (BMI 30-39.9) Surgical History Surgical History H/O tubal ligation History of cholecystectomy Social History Social History Smoking packs per day: 0.25 Smoking cigarettes per day: 5.0 Years smoked: 10 Smoking pack-years: 2.50 Smoking status: Light tobacco smoker Tobacco type: cigarettes Second hand tobacco smoke exposure: Yes Additional smoking assessment comments: had quit smoking, has started again but wants to quit Alcohol intake: never Substance use: current Substance use type: does not use Other substance usage details: gummies on occasion Living arrangements: with family Occupation/Education: occupation Gender identity (if verbalized by the patient): Female Spiritual care concerns: No Comments At the time of my signature, I reviewed and agree with the nursing past medical, surgical, social, and family history. There is no relevant family history pertinent to the patient complaint. Exam Const: General: cooperative, healthy appearing, comfortable, no acute distress, well developed
== END 2022-05-24 16:08 | disposition home or self-care (01) ==
PROVIDERS: Emergency Provider Nurse Practitioner; PCP Family Medicine
DX: J06.9 Acute upper respiratory infection, unspecified (principal); Z20.822 Contact with and (suspected) exposure to COVID-19; F17.210 Nicotine dependence, cigarettes, uncomplicated; I10 Essential (primary) hypertension; K21.9 Gastro-esophageal reflux disease without esophagitis; E66.9 Obesity, unspecified; Z68.33 Body mass index [BMI] 33.0-33.9, adult; F32.A Depression, unspecified
CPT/HCPCS: 87081; 87426; 87804; 87880; 99213; C9803; G0463

== ENCOUNTER 2022-08-23 15:54 | Emergency (ER) | payer OTHER, BC, SELFPAY ==
--- NOTE | 2022-08-23 16:03 | ED.WOUNDLAC ---
HPI - Wound/Laceration General Chief Complaint: Skin/Abscess/Foreign Body Stated Complaint: Laceration left big toe Time Seen by Provider: 08/23/22 16:34 Source: patient and RN notes reviewed Mode of arrival: ambulatory Limitations: dementia History of Present Illness HPI narrative: 52-year-old female presents concern for a wound on the 1st digit of her left foot. Reports she was in [place] last week when she cut the foot on a piece of metal on the ground. She reports throughout the weeks she walked on the beach, she did not clean it right away. She reports since then it is red, swollen, tender. She denies any drainage from the wound. She has been cleaning it with hydrogen peroxide. Related Data Home Medications Medication Instructions Recorded Confirmed cetirizine 10 mg tablet (Zyrtec) 10 mg PO DAILY PRN Allergy Symptoms 11/20/21 08/23/22 bupropion HCl 150 mg tablet,12 hr 150 mg PO DAILY 03/19/22 08/23/22 sustained-release (Wellbutrin SR) Allergies Allergy/AdvReac Type Severity Reaction Status Date / Time piperacillin Allergy Severe Dyspnea / Verified 08/23/22 16:25 SOB tazobactam Allergy Severe Dyspnea / Verified 08/23/22 16:25 SOB vancomycin Allergy Intermediate Dyspnea / Verified 08/23/22 16:25 SOB ciprofloxacin Allergy Mild Unknown Verified 08/23/22 16:25 clindamycin Allergy Mild Unknown Verified 08/23/22 16:25 codeine Allergy Mild Unknown Verified 08/23/22 16:25 Quinolones Allergy Mild Unknown Verified 08/23/22 16:25 Sulfa (Sulfonamide Allergy Mild unknown Verified 08/23/22 16:25 Antibiotics) Contrast Media Allergy Mild Rash Uncoded 08/23/22 16:25 Review of Systems Review of Systems: CONSTITUTIONAL: Denies malaise, chills, sweats, or fever. EYES: Denies redness, or discharge. ENT: Denies rhinorrhea, congestion, swollen lips, swollen tongue CARDIOVASCULAR: Denies chest pain, palpitations, or edema. RESPIRATORY: Denies cough or dyspnea. GASTROINTESTINAL: Denies abdominal pain, nausea, vomiting SKIN: Reports redness, swelling tenderness on the dorsal aspect of the 1st digit of the left foot. Denies purulent drainage, vesicles, bullae, numbness, pain beyond proportion MUSCULOSKELETAL: Denies joint pain or myalgia. NEUROLOGIC: Denies headache. All systems reviewed & are unremarkable except as noted in HPI and below PMFSH Past Medical History Medical History Body mass index (BMI) of 30 to 39 in adult Depression Encounter for screening colonoscopy Essential hypertension GERD (gastroesophageal reflux disease) Inattention Obesity (BMI 30-39.9) Surgical History Surgical History H/O tubal ligation History of cholecystectomy Social History Social History Smoking packs per day: 0.25 Smoking cigarettes per day: 5.0 Years smoked: 10 Smoking pack-years: 2.50 Smoking status: Light tobacco smoker Tobacco type: cigarettes Second hand tobacco smoke exposure: Yes Additional smoking assessment comments: had quit smoking, has started again but wants to quit Alcohol intake: never Substance use: current Substance use type: does not use Other substance usage details: gummies on occasion Living arrangements: with family Occupation/Education: occupation Gender identity (if verbalized by the patient): Female Spiritual care concerns: No Comments At time of signature, agree with nursing past medical, surgical, social and family history. There is no relevant family history pertinent to the presenting complaint Exam Narrative: GENERAL: Well-appearing, well-nourished, and in no acute distress. HEAD: Normocephalic, atraumatic. EYES: PERRLA, conjunctivae clear ENT: Mucous membranes moist. NECK: Supple. No lymphadenopathy CHEST: Clear to auscultation. No respiratory distress. HEART: Regul
[2022-08-23 16:11] VITALS: BP 147/93; PULSE 83; RESP 14; TEMP 36.6; O2SAT 100
== END 2022-08-23 16:57 | disposition home or self-care (01) ==
PROVIDERS: Emergency Provider Nurse Practitioner; PCP Family Medicine
DX: S91.102A Unspecified open wound of left great toe without damage to nail, initial encounter (principal); L08.9 Local infection of the skin and subcutaneous tissue, unspecified; W45.8XXA Other foreign body or object entering through skin, initial encounter; F17.210 Nicotine dependence, cigarettes, uncomplicated; K21.9 Gastro-esophageal reflux disease without esophagitis; E66.9 Obesity, unspecified; Z68.33 Body mass index [BMI] 33.0-33.9, adult; I10 Essential (primary) hypertension; F32.A Depression, unspecified
CPT/HCPCS: 99213; G0463

== ENCOUNTER 2023-08-07 11:22 | Emergency (ER) | payer OTHER, SELFPAY ==
[2023-08-07 11:31] VITALS: BP 134/76; PULSE 67; RESP 16; TEMP 36.6; O2SAT 100
--- NOTE | 2023-08-07 11:40 | ED.FEMALEGU ---
HPI - Female Genitourinary General Chief complaint: Urogenital-Female Stated complaint: UTI Source: patient and RN notes reviewed Mode of arrival: ambulatory Limitations: no limitations History of Present Illness HPI Narrative: 53-year-old female presented for complaint of burning with urination for 2 weeks. She also reports, foul smelling urine, green vaginal discharge 2 days ago with some nausea and right lower back pain. Denies hematuria, vomiting, abdominal pain, constipation, diarrhea, fevers or chills. Took AZO. Related Data Home Medications Medication Instructions Recorded Confirmed cetirizine 10 mg tablet (Zyrtec) 10 mg PO DAILY PRN Allergy Symptoms 11/20/21 08/07/23 aripiprazole 5 mg tablet 5 mg PO DAILY 08/07/23 08/07/23 duloxetine 60 mg capsule,delayed 60 mg PO DAILY 08/07/23 08/07/23 release Allergies Allergy/AdvReac Type Severity Reaction Status Date / Time piperacillin Allergy Severe Dyspnea / Verified 08/07/23 11:25 SOB tazobactam Allergy Severe Dyspnea / Verified 08/07/23 11:25 SOB vancomycin Allergy Intermediate Dyspnea / Verified 08/07/23 11:25 SOB ciprofloxacin Allergy Mild Unknown Verified 08/07/23 11:25 clindamycin Allergy Mild Unknown Verified 08/07/23 11:25 codeine Allergy Mild Unknown Verified 08/07/23 11:25 Quinolones Allergy Mild Unknown Verified 08/07/23 11:25 Sulfa (Sulfonamide Allergy Mild unknown Verified 08/07/23 11:25 Antibiotics) Contrast Media Allergy Mild Rash Uncoded 08/07/23 11:25 Review of Systems Review of Systems: CONSTITUTIONAL: Denies body aches, fever, chills, or sweats. CARDIOVASCULAR: Denies chest pain, palpitations, or edema. RESPIRATORY: Denies cough or dyspnea. GASTROINTESTINAL: Denies abdominal pain, nausea, vomiting, or diarrhea. GENITOURINARY: Reports dysuria, frequency, denies hematuria, flank pain SKIN: Denies rash, itching, or wounds. MUSCULOSKELETAL: Denies back pain or myalgia. [facility] Past Medical History Medical History Body mass index (BMI) of 30 to 39 in adult Depression Encounter for screening colonoscopy Essential hypertension GERD (gastroesophageal reflux disease) Inattention Obesity (BMI 30-39.9) Surgical History Surgical History H/O tubal ligation History of cholecystectomy Social History Social History Smoking packs per day: 0.25 Smoking cigarettes per day: 5.0 Years smoked: 10 Smoking pack-years: 2.50 Smoking status: Light tobacco smoker Tobacco type: cigarettes Second hand tobacco smoke exposure: Yes Additional smoking assessment comments: had quit smoking, has started again but wants to quit Alcohol intake: never Substance use: current Substance use type: does not use Other substance usage details: gummies on occasion Lack of Transportation: No Lack of Food: Never True Current Housing: I Have Housing Concerned About Future Housing: No Difficulty Paying Gas/Electric Bills: No Difficulty Paying for Meds: No Currently Unemployed: No Education: Trade/Vocational Certificate Difficulty w/ Childcare or Family Care: No Living arrangements: with family Occupation/Education: occupation Gender identity (if verbalized by the patient): Female Spiritual care concerns: No Comments At time of signature, I have reviewed and agree with nursing past medical, surgical, social and family history unless otherwise noted. Please see nursing chart for further information. There is no relevant family history pertinent to the presenting complaint Exam Narrative: GENERAL: Well-appearing ENT: Mucous membranes pink and moist. NECK: Normal AROM. Supple. CHEST: No respiratory distress. Clear to auscultation. HEART: Regular rate and rhythm. ABDOMEN: Soft, nontender, nondistended, normal active bowel sounds.
[2023-08-07 18:25] LABS: Trichomonas Vag PCR NOT DETECTED (NOT DETECTE)
[2023-08-07 18:49] LABS: Chlamydia trachomatis NOT DETECTED (NOT DETECTE); Neisseria gonorrhoeae PCR NOT DETECTED (NOT DETECTE)
== END 2023-08-07 11:58 | disposition home or self-care (01) ==
PROVIDERS: Emergency Provider Nurse Practitioner Family; PCP Family Medicine
DX: R30.0 Dysuria (principal); F17.210 Nicotine dependence, cigarettes, uncomplicated; I10 Essential (primary) hypertension; K21.9 Gastro-esophageal reflux disease without esophagitis; E66.9 Obesity, unspecified; Z68.35 Body mass index [BMI] 35.0-35.9, adult
CPT/HCPCS: 81003; 87086; 87088; 87491; 87591; 87661; 99213; G0463

== ENCOUNTER 2023-12-01 07:39 | Outpatient (CLI) | payer OTHER, SELFPAY ==
--- NOTE | ~2023-12-01 | XR_ITS ---
EXAMINATION: XR chest 2V DATE: 12/01/2023 08:04 INDICATION: Cough, unspecified. TECHNIQUE: Frontal and lateral views of the chest were obtained. COMPARISON: Chest 2 views 03/15/2022 FINDINGS: There is mild atelectasis at the lung bases. No pleural effusion or pneumothorax. The heart size is normal. Surgical clips in the right upper quadrant are likely from cholecystectomy. IMPRESSION: 1. Mild atelectasis at the lung bases. Reviewed, dictated and finalized at location A.
[2023-12-01 08:32] LABS: Basophils Percent Auto 0.3 % (0.2-1.2); Eosinophils Percent Auto 0.3 % (0-4.4); Hemoglobin 13.8 g/dL (12.0-15.0); Immature Granulocyte Absolute 0.04 K/mm3 (0.00-0.031); Immature Granulocyte Percent A 0.4 % (0-0.5); Lymphocytes Percent Auto 14.5 % (18.3-44.2); Mean Corpuscular HGB Conc 32.9 g/dl (32-36); Mean Corpuscular Hemoglobin 31.2 pg (26-34); Mean Corpuscular Volume 94.8 fl (80-100); Mean Platelet Volume 10.5 fl (7.4-10.4); Monocytes Absolute Auto 0.6 K/mm3 (0.1-0.6); Monocytes Percent Auto 5.6 % (2.6-8.5); Neutrophils Absolute Auto 8.2 K/mm3 (1.3-6.7); Neutrophils Percent Auto 78.9 % (45.5-73.1); Platelet Count Result 313 k/mm3 (150-375); Red Blood Count 4.43 M/mm3 (4.2-5.4); Red Cell Distribution Width 13.2 % (11.5-14.5); White Blood Count 10.3 K/mm3 (4.5-10.0)
[2023-12-01 08:45] LABS: Alanine Aminotransferase 16 U/L (6-35); Albumin Level 4.5 g/dL (3.5-5.1); Alkaline Phosphatase 50 U/L (38-126); Anion Gap 8 mmol/L (4-12); Aspartate Amino Transferase 20 U/L (14-36); Bilirubin,Total 0.4 mg/dL (0.2-1.3); Blood Urea Nitrogen 14 mg/dL (7-17); Calcium 8.7 mg/dL (8.4-10.2); Carbon Dioxide 26 mmol/L (22-30); Chloride 102 mmol/L (98-107); Cholesterol 240 mg/dL (0-200); Estimated Glomerular Filt Rate > 60; Glucose 91 mg/dL (65-110); HDL Direct 45 mg/dL; Lipase 106 U/L (23-300); Potassium 3.7 mmol/L (3.4-5.0); Sodium 136 mmol/L (137-145); Triglycerides 126 mg/dL (<150)
[2023-12-01 08:56] LABS: LDL Cholesterol Direct 145 mg/dL
[2023-12-01 09:05] LABS: Hemoglobin A1C 5.1 % (<5.7)
[2023-12-01 10:53] LABS: Free T4 Free Thyroxine 0.97 ng/mL (0.78-2.19); Vitamin D 25 Hydroxy 25.7 ng/mL
== END 2023-12-01 07:40 | disposition home or self-care (01) ==
LOC: ANHLAB 07:41
PROVIDERS: PCP Family Medicine; Visit Provider Student in an Organized Health Care Education/Training Program
DX: Z00.00 Encounter for general adult medical examination without abnormal findings (principal); Z13.1 Encounter for screening for diabetes mellitus; R53.83 Other fatigue; R10.13 Epigastric pain; E03.9 Hypothyroidism, unspecified; R05.9 Cough, unspecified; R06.00 Dyspnea, unspecified; R91.8 Other nonspecific abnormal finding of lung field
CPT/HCPCS: 36415; 71046; 80053; 80061; 82306; 83036; 83690; 84439; 84443; 85025

== ENCOUNTER 2024-02-16 13:11 | Outpatient (CLI) | payer OTHER, SELFPAY ==
[2024-02-16 13:54] LABS: Alanine Aminotransferase 22 U/L (6-35); Albumin Level 4.7 g/dL (3.5-5.1); Alkaline Phosphatase 55 U/L (38-126); Anion Gap 9 mmol/L (4-12); Aspartate Amino Transferase 25 U/L (14-36); Bilirubin,Total 0.5 mg/dL (0.2-1.3); Blood Urea Nitrogen 10 mg/dL (7-17); Calcium 9.4 mg/dL (8.4-10.2); Carbon Dioxide 27 mmol/L (22-30); Chloride 104 mmol/L (98-107); Cholesterol 156 mg/dL (0-200); Estimated Glomerular Filt Rate > 60; Glucose 95 mg/dL (65-110); HDL Direct 59 mg/dL; Potassium 4.1 mmol/L (3.4-5.0); Sodium 140 mmol/L (137-145); Triglycerides 85 mg/dL (<150)
[2024-02-16 14:04] LABS: LDL Cholesterol Direct 66 mg/dL
== END 2024-02-16 13:12 | disposition home or self-care (01) ==
LOC: ANHLAB 13:13
PROVIDERS: PCP Family Medicine; Visit Provider Student in an Organized Health Care Education/Training Program
DX: E78.5 Hyperlipidemia, unspecified (principal)
CPT/HCPCS: 36415; 80053; 80061

== ENCOUNTER 2024-04-23 14:54 | Outpatient (CLI) | payer OTHER, SELFPAY ==
--- NOTE | ~2024-04-23 | MM_ITS ---
EXAMINATION: MM screening niurka BI w david HISTORY: Screening mammogram TECHNIQUE: Craniocaudal and mediolateral oblique 3-D tomosynthesis images were obtained and synthetic 2-D images were generated. CAD analysis was submitted and interpreted. COMPARISON: 11/12/2017 BREAST PARENCHYMAL COMPOSITION:Not Dense. The breasts are almost entirely fatty FINDINGS: No suspicious mass, calcification, or architectural distortion are identified in either phan ast to suggest malignancy. There has been no suspicious interval change. IMPRESSION: No mammographic evidence of malignancy. Recommend routine screening mammography in one year. BI-RADS Category 1: Negative Reviewed, dictated and finalized at location . [employer]
== END 2024-04-23 14:55 | disposition home or self-care (01) ==
LOC: ANHIMG 14:55
PROVIDERS: PCP Family Medicine; Visit Provider Student in an Organized Health Care Education/Training Program
DX: Z12.31 Encounter for screening mammogram for malignant neoplasm of breast (principal)
CPT/HCPCS: 77063; 77067

== ENCOUNTER 2024-05-17 19:38 | Emergency (ER) | payer OTHER, SELFPAY ==
--- NOTE | 2024-05-17 19:51 | ED.URI ---
HPI - URI/Sore Throat General Chief Complaint: Upper Respiratory Infection Stated Complaint: Bodyaches/Sore Throat Time Seen by Provider: 05/17/24 20:05 Source: patient Mode of arrival: ambulatory Limitations: no limitations History of Present Illness HPI Narrative: Zeina is a 54-year-old female patient presenting to clinic today with complaints of body aches, chills, sore throat, cough, and mild shortness of breath. Reports symptoms started yesterday. No known fever. States her mother was and hospitalized for pneumonia/influenza. MD elicited complaint: sore throat and nasal congestion Related Data Home Medications ?Medication ?Instructions ?Recorded ?Confirmed ?Last Taken ?Type aripiprazole 5 mg tablet 5 mg PO DAILY 08/07/23 01/04/24 Unknown History duloxetine 60 mg capsule,delayed 60 mg PO DAILY 08/07/23 01/04/24 Unknown History release Allergies Allergy/AdvReac Type Severity Reaction Status Date / Time piperacillin Allergy Severe Dyspnea / Verified 05/17/24 19:52 SOB tazobactam Allergy Severe Dyspnea / Verified 05/17/24 19:52 SOB vancomycin Allergy Intermediate Dyspnea / Verified 05/17/24 19:52 SOB ciprofloxacin Allergy Mild Unknown Verified 05/17/24 19:52 clindamycin Allergy Mild Unknown Verified 05/17/24 19:52 codeine Allergy Mild Unknown Verified 05/17/24 19:52 Quinolones Allergy Mild Unknown Verified 05/17/24 19:52 Sulfa (Sulfonamide Allergy Mild unknown Verified 05/17/24 19:52 Antibiotics) Contrast Media Allergy Mild Rash Uncoded 05/17/24 19:52 Review of Systems Review of Systems: Pertinent positives per HPI. Patient denies any rash, headache, visual changes, dizziness, chest pain, palpitations, nausea, vomiting, diarrhea, constipation, abdominal pain, or any urinary issues. [facility] Past Medical History Medical History Hyperlipidemia GERD (gastroesophageal reflux disease) Encounter for screening colonoscopy Inattention Obesity (BMI 30-39.9) Body mass index (BMI) of 30 to 39 in adult Essential hypertension Depression Surgical History Surgical History H/O tubal ligation History of cholecystectomy Social History Social History (Reviewed 05/17/24 @ 20:26 by VIRGINIA Nuñez Smoking packs per day: 0.25 Smoking cigarettes per day: 5.0 Years smoked: 10 Smoking pack-years: 2.50 Smoking status: Light tobacco smoker Tobacco type: cigarettes (3 cigarettes per day) Second hand tobacco smoke exposure: Yes Additional smoking assessment comments: had quit smoking, has started again but wants to quit Alcohol intake: never Substance use: current Substance use type: does not use Other substance usage details: gummies on occasion Lack of Transportation: No Lack of Food: Never True Current Housing: I Have Housing Concerned About Future Housing: No Difficulty Paying Gas/Electric Bills: No Difficulty Paying for Meds: No Currently Unemployed: No Education: Trade/Vocational Certificate Difficulty w/ Childcare or Family Care: No Living arrangements: with family Occupation/Education: occupation Gender identity (if verbalized by the patient): Female Spiritual care concerns: No Comments At the time of my signature, I reviewed and agree with the nursing past medical, surgical, social, and family history. There is no relevant family history pertinent to the patient complaint. Exam Narrative: General: Well-developed, well nourished, in no apparent distress Head: Normocephalic, atraumatic Eyes: Pupils equally round and reactive to light bilaterally, EOM intact, sclera and conjunctive clear, no discharge, lids normal Ears: TMs intact and congested, ear canals clear, no drainage, grossly hearing normal. Nose: Nares patent, clear nasal discharge, no inflammation, no sinus tenderness. Mouth: Oral pharynx without lesions or masses, good dentition, MMM. Postnasal drip Neck: Supple, trachea midline, no enlargement of anterior or posterior cervical nodes, no thyroid masses or goiter palpable. Cardio: Regular rate and rhythm, s1 and s2 normal, no murmur appreciated. Resp: Clear to auscultation bilaterally, no rhonchi, rales, wheezing or rubs Course Course Emergency Course: Portions of this record may have been created with voice recognition software. Level of Care: Express Care Visit Vital Signs Vital signs: Vital Signs Temperature 36.9 C 05/17/24 20:08 Pulse Rate 84 05/17/24 20:08 Respiratory Rate 15 05/17/24 20:08 Blood Pressure 114/69 05/17/24 20:08 Pulse Oximetry 100 05/17/24 20:08 Oxygen Delivery Room Air 05/17/24 20:08 Temperature 36.9 C 05/17/24 20:08 Pulse Rate 84 05/17/24 20:23 Respiratory Rate 15 05/17/24 20:23 Blood Pressure 114/69 05/17/24 20:08 Pulse Oximetry 100 05/17/24 20:23 Oxygen Delivery Room Air 05/17/24 20:08 Vital signs reviewed MDM - URI/Sore Throat MDM Narrative Medical decision making narrative: At the time of visit patient is resting comfortably on the exam table. Patient appears to be nontoxic. Labs: COVID and influenza testing was performed. Influenza testing was positive for influenza A. COVID testing was negative. Plan: Patient has influenza A. We will send in prescription for Tamiflu. Lung sounds are clear in the clinic today in oxygen saturations 100% on room air. Supportive measures were discussed with the patient and they voiced understanding discharge instructions and agrees to treatment plan. Return precautions reviewed Differential Diagnosis Differential diagnosis: Likely upper respiratory infection, otitis media, sinusitis, viral infection, bronchitis, influenza, pharyngitis and other (COVID) Discharge Plan Discharge Clinical Impression: Influenza A Patient Disposition: Home, Self-Care Condition: Stable Instructions: Antibiotic Form, Influenza (ED) Additional Instructions: Influenza A testing was positive in the clinic today. COVID testing was negative in the clinic today. Take prescription medications only as prescribed-Tamiflu Increase fluids and stay well hydrated Tylenol/motrin for pain/fever Flonase and OTC antihistamines as directed Vicks vapor rub to open sinuses Sinus rinses for congestion Cepacol spray, cough drops, throat lozenges, warm tea with honey/lemon, gargle salt water to soothe throat BRAT diet for diarrhea Clear liquids x 24 hours then advance as tolerated for nausea/vomiting Go to the ED if you develop a worsening in your condition- high fever not controlled by Tylenol or Motrin, dehydration, weakness, lethargy, shortness of breath, or chest pain. Follow up with your PCP in 3-5 days if symptoms persist. Patient Language: Welsh Prescriptions: New oseltamivir [Tamiflu] 75 mg capsule 75 mg PO Q12H 5 Days Qty: 10 0RF No Action aripiprazole 5 mg tablet 5 mg PO DAILY duloxetine 60 mg capsule,delayed release(DR/EC) 60 mg PO DAILY fluticasone propionate 50 mcg/actuation spray,suspension 2 spray intranasal BID Qty: 16 2RF Rx Instructions: administer into each nostril bupropion HCl [Wellbutrin SR] 150 mg tablet sustained-release 12 hr 150 mg PO QHS Qty: 60 1RF bupropion HCl 300 mg tablet extended release 24 hr 300 mg PO QAM Qty: 30 0RF atomoxetine 100 mg capsule 100 mg PO DAILY Qty: 1 0RF Wegovy 0.25 mg/0.5 mL pen injector 0.25 mg subcut WEEKLY Qty: 2 0RF Rx Instructions: administer weeks 1 through 4 of therapy (DME) BD Syringe 1 mL syringe See Rx Instructions .Route Qty: 12 0RF Rx Instructions: As directed monthly cyanocobalamin (vitamin B-12) 1,000 mcg/mL kit 1,000 mcg IM MONTHLY Qty: 1 5RF lisinopril 10 mg tablet See Rx Instructions .ROUTE .COMPLEX Qty: 90 2RF Dose Instruction: Take 1 tablet by mouth once daily Rx Instructions: Take 1 tablet by mouth once daily albuterol sulfate 90 mcg/actuation HFA aerosol inhaler 1 inh inhalation Q4H PRN (Reason: shortness of breath or wheezing) Qty: 8.5 0RF levothyroxine 50 mcg tablet 50 mcg PO DAILY Qty: 90 1RF rosuvastatin 5 mg tablet 5 mg PO DAILY Qty: 30 1RF Follow-up/Referrals: Neena Bernard MD [Primary Care Provider] - Stand Alone Forms: Work/School Release IP Time of Disposition: 20:24 Quality NIHSS Nursing Documentation ED NIHSS nursing documentation: reviewed/agree
[2024-05-17 20:08] VITALS: BP 114/69; PULSE 84; RESP 15; TEMP 36.9; O2SAT 100
[2024-05-17 20:23] VITALS: PULSE 84; RESP 15; O2SAT 100
[2024-05-17 20:28] LABS: EDCOVIDSCREEN Negative (Negative); EDINFLUASCREEN Positive (Negative); EDINFLUBSCREEN Negative (Negative)
== END 2024-05-17 20:30 | disposition home or self-care (01) ==
PROVIDERS: Emergency Provider Nurse Practitioner Family; PCP Family Medicine
DX: J10.1 Influenza due to other identified influenza virus with other respiratory manifestations (principal); I10 Essential (primary) hypertension; F17.210 Nicotine dependence, cigarettes, uncomplicated; Z20.822 Contact with and (suspected) exposure to COVID-19
CPT/HCPCS: 87426; 87804; 99213; G0463